=== PATIENT | female | born 1990 | race Caucasian/White ===

== ENCOUNTER 2016-10-29 13:35 | Emergency (ER) | payer OTHER ==
[2016-10-29 13:42] VITALS: BMI 30.1
[2016-10-29 14:33] VITALS: BP 107/56; PULSE 78; TEMP 97.4
[2016-10-29] MEDS ORDERED: DEXTROSE 5%-LACTATED RINGERS 500 ML IV ONE (14:40)
[2016-10-29] MEDS ORDERED: DEXTROSE 5%-LACTATED RINGERS 1,000 ML IV SCH (15:40)
[2016-10-29] MEDS ORDERED: ONDANSETRON 4 MG/2 ML VIAL IVPB ONE (16:45)
== END 2016-10-29 17:08 | disposition home or self-care (01) ==
LOC: JER 13:35
DX: O33.1 Maternal care for disproportion due to generally contracted pelvis (principal); Z3A.40 40 weeks gestation of pregnancy
CPT/HCPCS: 99281-25

== ENCOUNTER 2019-05-16 23:19 | Emergency (ER) | payer OTHER ==
[2019-05-16 23:35] VITALS: BMI 28.3
--- NOTE | 2019-05-16 23:40 | PDOC ---
History of Present Illness - General Chief Complaint: Vaginal Bleeding Stated Complaint: 8 WKS PREGNAT/BLEEDING/LOWER ABD/PAIN Time Seen by Provider: 05/16/19 23:39 History Source: Patient Exam Limitations: No Limitations - History of Present Illness Initial Comments: 28 year old female A1 8 weeks by LMP presented to ED for vaginal bleeding since tonight. Pt reported she went to the bathroom, urinated, then saw blood on the toilet paper. She stated she then began to feel lower abdominal /pelvic cramping that "was similar to getting my period". Pt denied nausea, vomiting, diarrhea, fever, vaginal discharge, dysuria, flank pain. Pt denied clots. Pt denied soaking through pads. Allergies: NKDA Surgical history: X2 LMP: 03/14/19 Past History - Past Medical History Allergies/Adverse Reactions: Allergies Allergy/AdvReac Type Severity Reaction Status Date / Time No Known Allergies Allergy Verified 10/29/16 13:46 Home Medications: Ambulatory Orders Cephalexin [Keflex] 500 mg PO TID #21 capsule 05/17/19 Asthma: No Cancer: No Cardiac Disorders: No Diabetes: No HTN: No Seizures: No Thyroid Disease: No - Suicide/Smoking/Psychosocial Hx Smoking History: Never smoked Have you smoked in the past 12 months: No Hx Alcohol Use: No Drug/Substance Use Hx: No Hx Substance Use Treatment: No Review of Systems - Review of Systems Able to Perform ROS?: Yes Comments:: General: denied fever, chills, generalized weakness. HEENT: denied sore throat, rhinorrhea, ear pain. Cardiovascular: denied chest pain, palpitations, syncope, diaphoresis. Respiratory: denied shortness of breath, cough, sputum production, hemoptysis. Gastrointestinal: admitted to abdominal pain. denied nausea, vomiting, diarrhea , constipation, blood in stool. Genitourinary: admitted to vaginal bleeding, pelvic cramping. denied dysuria, increased urinary frequency, hematuria, urinary incontinence, flank pain. Back: denied back pain. Musculoskeletal: denied joint pain, muscle pain, joint swelling. Neurological: denied headache, dizziness, numbness, tingling, weakness. Integumentary: denied rash, laceration, abrasion. Hematologic/Lymphatic: denied bruising or bleeding. *Physical Exam - Vital Signs Last Vital Signs Temp Pulse Resp BP Pulse Ox 98.6 F 96 H 20 124/66 100 08/23/19 23:29 05/16/19 23:29 05/16/19 23:29 05/16/19 23:29 05/16/19 23:29 - Physical Exam Comments: Constitutional: Well-nourished, Well-developed, appearing stated age. HEENT: head is normocephalic, atraumatic. EOMI. PERRLA. Neck: supple. Full ROM. Cardiovascular: regular heart rhythm. no murmurs. no pericardial friction rub. Respiratory: clear to auscultation bilaterally. no crackles, rhonchi or wheezing. no stridor. Gastrointestinal: soft. normal bowel sounds. no rebound, guarding, masses. Extremities: peripheral pulses intact. no lower extremity edema. Neurological: CN 2-12 grossly intact. moves all four extremities. Psych: awake, alert, oriented x3. follows commands. answers questions appropriately. Pelvic: normal external genitalia. scant blood in vaginal canal, no pooling. cervical os closed. no CMT. no adnexal tenderness. ED Treatment Course - LABORATORY CBC & Chemistry Diagram: 05/17/19 00:20 05/17/19 00:20 Medical Decision Making - Medical Decision Making 28 year old female A1 8W by LMP date presented to ED for vaginal bleeding since [facility]. Pt has OBGYN Clinic, but has not seen her OBGYN for this current . Initial Vital Signs Temp Pulse Resp BP Pulse Ox 98.6 F 96 H 20 124/66 100 05/16/19 23:29 05/16/19 23:29 05/16/19 23:29 05/16/19 23:29 05/16/19 23:29 Afebrile. No tachycardia. No tachypnea. No hypotension. No hypoxia on room air. Labs ordered: CBC, CMP, serum beta quant, coags, T&S Imaging ordered: TVUS Medications ordered: none 05/17/19 00:58 Urine Test Results Urine Color Yellow 05/17/19 00:20 Urine Appearance Cloudy 05/17/19 00:20 Urine pH 6.5 (5.0-8.0) 05/17/19 00:20 Ur Specific [place] 1.032 (1.010-1.035) 05/17/19 00:20 Urine Protein Negative (NEGATIVE) 05/17/19 00:20 Urine Glucose (UA) Negative (NEGATIVE) 05/17/19 00:20 Urine Ketones Trace (NEGATIVE) H 05/17/19 00:20 Urine Blood 2+ (NEGATIVE) H 05/17/19 00:20 Urine Nitrite Negative (NEGATIVE) 05/17/19 00:20 Urine Bilirubin Negative (NEGATIVE) 05/17/19 00:20 Ur Leukocyte Esterase 1+ (NEGATIVE) H 05/17/19 00:20 WBC 11 Positive for asymptomatic UTI in . Will treat. Medications ordered: Keflex 500 mg PO once 05/17/19 01:47 CBC WBC 7.5 K/mm3 (4.0-10.0) 05/17/19 00:20 RBC 3.85 M/mm3 (3.60-5.2) 05/17/19 00:20 Hgb 11.0 GM/dL (10.7-15.3) 05/17/19 00:20 Hct 33.4 % (32.4-45.2) 05/17/19 00:20 MCV 86.7 fl (80-96) 05/17/19 00:20 MCH 28.6 pg (25.7-33.7) 05/17/19 00:20 MCHC 33.0 g/dl (32.0-36.0) 05/17/19 00:20 RDW 13.8 % (11.6-15.6) D 05/17/19 00:20 Plt Count 225 K/MM3 (134-434) 05/17/19 00:20 MPV 8.3 fl (7.5-11.1) D 05/17/19 00:20 Absolute Neuts (auto) 3.3 K/mm3 (1.5-8.0) 05/17/19 00:20 Neutrophils % 44.7 % (42.8-82.8) 05/17/19 00:20 Lymphocytes % 41.8 % (8-40) H 05/17/19 00:20 Monocytes % 11.3 % (3.8-10.2) H 05/17/19 00:20 Eosinophils % 1.8 % (0-4.5) 05/17/19 00:20 Basophils % 0.4 % (0-2.0) 05/17/19 00:20 Nucleated RBC % 0 % (0-0) 05/17/19 00:20 No leukocytosis. No anemia. 05/17/19 02:04 CMP Sodium 140 mmol/L (136-145) 05/17/19 00:20 Potassium 3.9 mmol/L (3.5-5.1) 05/17/19 00:20 Chloride 105 mmol/L (98-107) 05/17/19 00:20 Carbon Dioxide 26 mmol/L (21-32) 05/17/19 00:20 Anion Gap 9 MMOL/L (8-16) 05/17/19 00:20 BUN 14.2 mg/dL (7-18) 05/17/19 00:20 Creatinine 0.6 mg/dL (0.55-1.3) 05/17/19 00:20 Est GFR (CKD-EPI)AfAm 141.76 05/17/19 00:20 Est GFR (CKD-EPI)NonAf 122.31 05/17/19 00:20 Random Glucose 79 mg/dL (74-106) 05/17/19 00:20 Calcium 9.0 mg/dL (8.5-10.1) 05/17/19 00:20 Total Bilirubin 0.2 mg/dL (0.2-1) 05/17/19 00:20 AST 19 U/L (15-37) 05/17/19 00:20 ALT 30 U/L (13-61) 05/17/19 00:20 Alkaline Phosphatase 61 U/L (45-117) 05/17/19 00:20 Total Protein 7.8 g/dl (6.4-8.2) 05/17/19 00:20 Albumin 3.5 g/dl (3.4-5.0) 05/17/19 00:20 Beta HCG, Quant 66511.8 mIU/ml 05/17/19 00:20 No electrolyte abnormalities. No LARY. No transaminitis. Beta-HCG 99981 TVUS images show IUP with FHR 170s -Pending official report Past Type & Screen - O negative -Rhogam ordered 05/17/19 02:58 TVUS report: Single live intrauterine gestation at 8 weeks 5 days. FHR 174 bpm. positive yolk sac. normal ovaries. Blood Type, Rh (Baby) Blood Type O NEGATIVE 05/17/19 00:20 Rhogam given. Results discussed with patient. Pt informed to follow up in 48 hours for beta check. Pt informed to follow up with OBGYN, buy over the counter vitamins. Pt discharged. Pt provided with copies of labs and US report. *DC/Admit/Observation/Transfer Diagnosis at time of Disposition: Vaginal bleeding affecting early , UTI (urinary tract infection) during - Discharge Dispostion Disposition: HOME Condition at time of disposition: Stable Decision to Admit order: No - Prescriptions Prescriptions: Cephalexin [Keflex] 500 mg PO TID #21 capsule - Referrals Referrals: Fidelia Zhong MD [Staff Physician] - - Patient Instructions Printed Discharge Instructions: DI for Urinary Tract Infection (UTI), DI for Vaginal Bleeding During Additional Instructions: Your urine analysis showed you have a urinary tract infection. Your lab work was normal. You must have the beta-HCG level repeated in 48 hours to ensure this number is increasing with normal . You may do this at your OBGYN's office or return to the Emergency Department. Your Ultrasound showed a live intrauterine with a heart beat. I have sent a prescription to your pharmacy for an antibiotic to treat the urinary tract infection. You received the first dose in the Emergency Department. Take all pills as prescribed. Do not stop taking the pills early. Follow up with your OBGYN within 3 days. Your care is not complete until you follow up. Bring all paperwork given to you today to your appointment. Return to the Emergency Department for increasing bleeding to the point of soaking through >2 pads/hours, chest pain, shortness of breath, passing of clots , fever, vomiting, lightheadedness or any other new, worsening or concerning symptoms. - Post Discharge Activity Forms/Work/School Notes: Back to Work
[2019-05-17 00:46] LABS: EPI CELLS 20.1 /HPF (0-5/HPF); HYALINE CASTS 20 /lpf (0-8); PH,URINE 6.5 (5.0-8.0); URINE APPEARANCE CLOUDY; URINE BACTERIA 699.4 /hpf (NEGATIVE); URINE BILIRUBIN NEGATIVE (NEGATIVE); URINE COLOR YELLOW; URINE GLUCOSE (UA) NEGATIVE (NEGATIVE); URINE KETONE TRACE (NEGATIVE); URINE LEUK ESTERASE 1+ (NEGATIVE); URINE NITRITE NEGATIVE (NEGATIVE); URINE PROTEIN NEGATIVE (NEGATIVE); URINE RBC 1 /hpf (0-4); URINE WBC 11 /hpf (0-5)
[2019-05-17 01:03] LABS: BASO % 0.4 % (0-2.0); EOS % 1.8 % (0-4.5); HEMATOCRIT 33.4 % (32.4-45.2); LYMPH % 41.8 % (8-40); MCH 28.6 pg (25.7-33.7); MEAN CELL VOLUME 86.7 fl (80-96); MEAN PLT VOLUME 8.3 fl (7.5-11.1); MONO % 11.3 % (3.8-10.2); NEUT % 44.7 % (42.8-82.8); PLATELET COUNT 225 K/MM3 (134-434); RBC 3.85 M/mm3 (3.60-5.2); RDW 13.8 % (11.6-15.6); WHITE BLOOD COUNT 7.5 K/mm3 (4.0-10.0)
[2019-05-17 01:23] LABS: INR 0.93 (0.83-1.09)
[2019-05-17 01:25] LABS: ACTIVATED PTT 31.3 SECONDS (25.2-36.5)
[2019-05-17] MEDS ORDERED: RHO(D) IMMUNE GLOBULIN 1,500 UNIT DISP.SYRIN IM ONE (01:40)
[2019-05-17] MEDS ORDERED: CEPHALEXIN MONOHYDRATE 500 MG CAPSULE (UD) PO ONE (01:41)
[2019-05-17 01:59] LABS: ALBUMIN 3.5 g/dl (3.4-5.0); BILIRUBIN,TOTAL 0.2 mg/dL (0.2-1); BLOOD UREA NITROGEN 14.2 mg/dL (7-18); CREATININE 0.6 mg/dL (0.55-1.3); POTASSIUM 3.9 mmol/L (3.5-5.1); TOT PROT 7.8 g/dl (6.4-8.2)
[2019-05-17] MEDS ORDERED: CEPHALEXIN MONOHYDRATE 500 MG CAPSULE (UD) ONE (02:07)
--- NOTE | 2019-05-17 02:07 | PDOC ---
*Physical Exam - Vital Signs Last Vital Signs Temp Pulse Resp BP Pulse Ox 98.9 F 88 18 109/67 100 05/16/19 23:45 05/16/19 23:45 05/16/19 23:45 05/16/19 23:45 05/16/19 23:45 ED Treatment Course - LABORATORY CBC & Chemistry Diagram: 05/17/19 00:20 05/17/19 00:20 - ADDITIONAL ORDERS Additional order review: Laboratory Results 05/17/19 05/17/19 05/17/19 00:20 00:20 00:20 WBC 7.5 RBC 3.85 Hgb 11.0 Hct 33.4 MCV 86.7 MCH 28.6 MCHC 33.0 RDW 13.8 D Plt Count 225 MPV 8.3 D Absolute Neuts (auto) 3.3 Neutrophils % 44.7 Lymphocytes % 41.8 H Monocytes % 11.3 H Eosinophils % 1.8 Basophils % 0.4 Nucleated RBC % 0 PT with INR INR PTT (Actin FS) Sodium 140 Potassium 3.9 Chloride 105 Carbon Dioxide 26 Anion Gap 9 BUN 14.2 Creatinine 0.6 Est GFR (CKD-EPI)AfAm 141.76 Est GFR (CKD-EPI)NonAf 122.31 Random Glucose 79 Calcium 9.0 Total Bilirubin 0.2 AST 19 ALT 30 Alkaline Phosphatase 61 Total Protein 7.8 Albumin 3.5 Beta HCG, Quant 02578.8 Urine Color Yellow Urine Appearance Cloudy Urine pH 6.5 Ur Specific [place] 1.032 Urine Protein Negative Urine Glucose (UA) Negative Urine Ketones Trace H Urine Blood 2+ H Urine Nitrite Negative Urine Bilirubin Negative Urine Urobilinogen 1.0 Ur Leukocyte Esterase 1+ H Urine WBC (Auto) 11 Urine RBC (Auto) 1 Urine Casts (Auto) 20 U Epithel Cells (Auto) 20.1 Urine Bacteria (Auto) 699.4 05/17/19 00:20 WBC RBC Hgb Hct MCV MCH MCHC RDW Plt Count MPV Absolute Neuts (auto) Neutrophils % Lymphocytes % Monocytes % Eosinophils % Basophils % Nucleated RBC % PT with INR 11.00 INR 0.93 PTT (Actin FS) 31.3 Sodium Potassium Chloride Carbon Dioxide Anion Gap BUN Creatinine Est GFR (CKD-EPI)AfAm Est GFR (CKD-EPI)NonAf Random Glucose Calcium Total Bilirubin AST ALT Alkaline Phosphatase Total Protein Albumin Beta HCG, Quant Urine Color Urine Appearance Urine pH Ur Specific [place] Urine Protein Urine Glucose (UA) Urine Ketones Urine Blood Urine Nitrite Urine Bilirubin Urine Urobilinogen Ur Leukocyte Esterase Urine WBC (Auto) Urine RBC (Auto) Urine Casts (Auto) U Epithel Cells (Auto) Urine Bacteria (Auto) 05/17/19 00:20 RBC 3.85 MCV 86.7 MCHC 33.0 RDW 13.8 D MPV 8.3 D Neutrophils % 44.7 Lymphocytes % 41.8 H Monocytes % 11.3 H Eosinophils % 1.8 Basophils % 0.4 Medical Decision Making - Medical Decision Making 05/17/19 02:07 Pt with vag bleed spotting; rh neg; UTI 05/17/19 02:53 Patient Name: SHERRY FLORES THIS IS A PRELIMINARY REPORT FROM [facility] DATE OF SERVICE: 2019-05-17 00:52:01 IMAGES: 34 EXAM: TRANSVAGINAL US PREG HISTORY: 8 weeks with vaginal bleeding COMPARISON: None. FINDINGS: There is a single live intrauterine gestation with measurements corresponding to 8 weeks and 5 days. heart rate is 174 bpm. A yolk sac is observed. Amniotic fluid subjectively normal. No acute abnormalities. Normal ovaries. 05/17/19 03:14 Diagnosis: vag spotting/threatened ; UTI She is stable to go home. She has an 8 week 5day fetus with good FH. She will be discharged home with DIRECTOR OF HOUSING follow up. *DC/Admit/Observation/Transfer Diagnosis at time of Disposition: Vaginal bleeding affecting early , UTI (urinary tract infection) during - Discharge Dispostion Disposition: HOME Condition at time of disposition: Stable - Prescriptions Prescriptions: Cephalexin [Keflex] 500 mg PO TID #21 capsule - Referrals Referrals: Fiedlia Zhong MD [Staff Physician] - - Patient Instructions Printed Discharge Instructions: DI for Urinary Tract Infection (UTI), DI for Vaginal Bleeding During Additional Instructions: Your urine analysis showed you have a urinary tract infection. Your lab work was normal. You must have the beta-HCG level repeated in 48 hours to ensure this number is increasing with normal . You may do this at your OBGYN's office or return to the Emergency Department. Your Ultrasound showed a live intrauterine with a heart beat. I have sent a prescription to your pharmacy for an antibiotic to treat the urinary tract infection. You received the first dose in the Emergency Department. Take all pills as prescribed. Do not stop taking the pills early. Follow up with your OBGYN within 3 days. Your care is not complete until you follow up. Bring all paperwork given to you today to your appointment. Return to the Emergency Department for increasing bleeding to the point of soaking through >2 pads/hours, chest pain, shortness of breath, passing of clots , fever, vomiting, lightheadedness or any other new, worsening or concerning symptoms. - Post Discharge Activity Forms/Work/School Notes: Back to Work
--- NOTE | 2019-05-17 02:10 | PDOC ---
Documentation entered by Hortencia Ojeda SCRIBE, acting as scribe for Sabrina Lopez MD. Sabrina Lopez MD: This documentation has been prepared by the Lynette ibrahim Adrianna, SCRIBE, under my direction and personally reviewed by me in its entirety. I confirm that the documentation accurately reflects all work, treatment, procedures, and medical decision making performed by me. Attending Attestation - Resident Resident Name: Deisi Enamorado - HPI HPI: The patient is a 28 year old female (A1- currently at 8 weeks gestation determined by LMP on 03/14), who presents to the ED for evaluation of vaginal bleeding for one day. Patient notes that she noticed blood on the toilet paper when wiping after urinating. Following this episode, the patient notes she began experiencing lower abdominal cramping similar to when she has her menstrual cycle. She denies soaking through pads, clots, or vaginal discharge. Patient denies taking any prenatals or following up with an OB at this time. Denies fever, chills, nausea, vomit, urinary symptoms, diarrhea. Allergies: NKDA Surgical history: x2 Social History: Denies EtOH, tobacco, or illicit drug use - Physicial Exam PE: GENERAL: Awake, alert, and fully oriented, in no acute distress LUNGS: Breath sounds equal, clear to auscultation bilaterally. No wheezes, and no crackles HEART: Regular rate and rhythm, normal S1 and S2, no murmurs, rubs or gallops ABDOMEN: Soft, nontender, normoactive bowel sounds. No guarding, no rebound. No masses EXTREMITIES: Normal range of motion, no edema. No clubbing or cyanosis. No cords, erythema, or tenderness PELVIC: See resident exam NEUROLOGICAL: Cranial nerves II through XII grossly intact. Normal speech SKIN: Warm, Dry, normal turgor, no rashes or lesions noted. - Medical Decision Making 05/17/19 01:56 Pt presents to the ED complaining of vaginal spotting with mild pelvic cramping. Os closed on pelvic exam. Ectopic vs threatened AB vs missed AB. Will check labs including b hcg, check US, reevaluate. Patient is rh negative-- will give rhogam. 05/17/19 02:00
[2019-05-17 03:20] VITALS: BP 118/70; PULSE 80; TEMP 98.4
== END 2019-05-17 03:18 | disposition home or self-care (01) ==
LOC: JER 23:19
PROC: 3E0234Z Introduction of Serum, Toxoid and Vaccine into Muscle, Percutaneous Approach (ICD-10-PCS; principal; 2019-05-16)
DX: O26.891 Other specified pregnancy related conditions, first trimester (principal); O20.0 Threatened abortion; O23.41 Unspecified infection of urinary tract in pregnancy, first trimester; O36.0910 Maternal care for other rhesus isoimmunization, first trimester, not applicable or unspecified; Z3A.08 8 weeks gestation of pregnancy
CPT/HCPCS: 36415; 76817-TC; 80053; 81003; 84702; 85025; 85610; 85730; 86850; 86870; 86900; 86901; 86902; 86999; 87086; 87186; 96372; 99284-25; J1561

== ENCOUNTER 2020-10-29 10:32 | Emergency (ER) | payer OTHER ==
[2020-10-29 10:58] VITALS: BP 121/74; PULSE 81; TEMP 97.9; BMI 32.5
[2020-10-29 12:23] LABS: HCG,QUALITATIVE URINE Positive
[2020-10-29 12:26] LABS: EPI CELLS 28 /uL (0-25.1); HYALINE CASTS 2 /uL (0-3.1); PH,URINE 6.5 (5.0-8.0); URINE APPEARANCE CLEAR; URINE BACTERIA 5006 /uL (0-1359); URINE BILIRUBIN NEGATIVE (NEGATIVE); URINE COLOR YELLOW; URINE GLUCOSE (UA) NEGATIVE (NEGATIVE); URINE KETONE 1+ (NEGATIVE); URINE LEUK ESTERASE TRACE (NEGATIVE); URINE NITRITE NEGATIVE (NEGATIVE); URINE PROTEIN NEGATIVE (NEGATIVE); URINE RBC 6 /uL (0-23.9); URINE WBC 37 /uL (0-25.8)
[2020-10-29 13:00] LABS: BASO % 0.3 % (0-2.0); EOS % 0.4 % (0-4.5); HEMATOCRIT 33.4 % (32.4-45.2); HEMOGLOBIN 11.1 GM/dL (10.7-15.3); MCHC 33.2 g/dl (32.0-36.0); MEAN CELL VOLUME 87.5 fl (80-96); MEAN PLT VOLUME 8.3 fl (7.5-11.1); MONO % 7.6 % (3.8-10.2); NEUT % 65.7 % (42.8-82.8); PLATELET COUNT 214 K/MM3 (134-434); RBC 3.82 M/mm3 (3.60-5.2); RDW 13.4 % (11.6-15.6)
[2020-10-29 13:46] LABS: POTASSIUM 4.1 mmol/L (3.5-5.1)
[2020-10-29 13:49] LABS: ALBUMIN 3.4 g/dl (3.4-5.0); BLOOD UREA NITROGEN 5.3 mg/dL (7-18)
[2020-10-29 13:52] LABS: CREATININE 0.5 mg/dL (0.55-1.3)
[2020-10-29 13:54] LABS: TOT PROT 7.5 g/dl (6.4-8.2)
[2020-10-29 13:56] LABS: BILIRUBIN,TOTAL 0.3 mg/dL (0.2-1)
[2020-10-29] MEDS ORDERED: RHO(D) IMMUNE GLOBULIN 1,500 UNIT DISP.SYRIN IM ONE (14:21)
== END 2020-10-29 15:29 | disposition home or self-care (01) ==
LOC: JER 10:32
PROC: 3E0234Z Introduction of Serum, Toxoid and Vaccine into Muscle, Percutaneous Approach (ICD-10-PCS; principal; 2020-10-29)
DX: O26.899 Other specified pregnancy related conditions, unspecified trimester (principal); R10.9 Unspecified abdominal pain
CPT/HCPCS: 36415; 76815-TC; 80053; 81003; 84702; 84703; 85025; 86850; 86870; 86900; 86901; 86902; 86999; 87086; 87186; 99284-25